=== PATIENT | female | born 1985 | race Caucasian/White ===

== ENCOUNTER 2021-12-17 13:30 | Inpatient (IN) ==
[2021-12-17] MEDS ORDERED: MEPERIDINE 50 MG/1 ML VIAL IV PRN (13:46)
[2021-12-17] MEDS ORDERED: ONDANSETRON 4 MG/2 ML VIAL IV PRN ×2 (13:46→20:10)
[2021-12-17] MEDS ORDERED: BUTORPHANOL 2 MG/ML VIAL IV PRN (13:46)
[2021-12-17] MEDS ORDERED: AMPICILLIN INJ 2,000 MG in SODIUM CHLORIDE 0.9% 100 ML IV ONE (13:48)
[2021-12-17] MEDS ORDERED: OXYTOCIN/LR 20 UNIT/1,000 ML BAG IV SCH (14:00)
[2021-12-17] MEDS ORDERED: LACTATED RINGERS 1,000 ML IV SCH (14:00)
[2021-12-17 14:07] LABS: Basophils % 0.3 % (0.0-0.8); Eosinophils # 0.1 10*3/uL (0.0-0.87); Eosinophils % 0.6 % (0.00-10.9); Hematocrit 34.8 VOL% (35.7-47.0); Hemoglobin 11.5 GM/DL (12.0-16.0); Immature Granulocytes % 0.6 %; Immature Granulocytes Absolute 0.06 #; Lymphocytes # 2.1 10*3/uL (1.4-4.0); Lymphocytes % 20.6 % (21.3-54.2); Mean Corpuscular Volume 89.5 FL (87-102); Mean Platelet Volume 10.2 FL (9.6-12.0); Monocytes % 5.1 % (1.7-12.7); Neutrophils % 72.8 % (38.7-73.9); Platelet Count 271 T/CUMM (130-400); Red Blood Count 3.89 MC/CUMM (3.8-5.5); Red Cell Distribution Width 12.5 % (9.3-17.3); White Blood Count 10.3 T/CUMM (4-12)
[2021-12-17] MEDS ORDERED: CITRIC ACID/SODIUM CITRATE 30 ML UDCUP PO ONE (17:56)
[2021-12-17] MEDS ORDERED: diphenhydrAMINE 50 MG/1 ML VIAL IV PRN ×2 (17:56)
[2021-12-17] MEDS ORDERED: ePHEDrine 50 MG/ML VIAL IV PRN (17:56)
[2021-12-17] MEDS ORDERED: NALOXONE 0.4 MG/ML VIAL IV PRN (17:56)
[2021-12-17] MEDS ORDERED: FAMOTIDINE 20 MG/2 ML VIAL IV ONE (17:56)
[2021-12-17] MEDS ORDERED: LACTATED RINGERS 1,000 ML IV ONE (17:56)
[2021-12-17] MEDS ORDERED: fentaNYL 2 MCG/ROPIV 0.2% EPID 100 ML EPIDURAL SCH (18:00)
[2021-12-17] MEDS ORDERED: AMPICILLIN INJ 1,000 MG in SODIUM CHLORIDE 0.9% 100 ML IV SCH (18:30)
[2021-12-17] MEDS ORDERED: SODIUM CHLORIDE 0.9% 0 ML IV ONE (19:12)
[2021-12-17] MEDS ORDERED: miSOPROStoL 200 MCG TABLET ONE (19:12)
[2021-12-17] MEDS ORDERED: TRANEXAMIC ACID 1,000 MG/10 ML VIAL ONE (19:12)
[2021-12-17] MEDS ORDERED: OXYTOCIN/LR 20 UNIT/1,000 ML BAG IV ONE ×2 (19:12→20:10)
[2021-12-17] MEDS ORDERED: METHYLERGONOVINE 0.2 MG/1 ML AMP ONE (19:13)
[2021-12-17] MEDS ORDERED: CARBOPROST TROMETHAMINE 250 MCG/ML AMP IM ONE (19:13)
[2021-12-17] MEDS ORDERED: BENZOCAINE 20%/MENTHOL 0.5% SPRAY 56 GM CAN TOP PRN (20:10)
[2021-12-17] MEDS ORDERED: BISACODYL 10 MG SUPP RECTAL PRN (20:10)
[2021-12-17] MEDS ORDERED: MEASLES/MUMPS/RUBELLA VACCINE 0.5 ML VIAL SUBCUT ONE (20:10)
[2021-12-17] MEDS ORDERED: HYDROCORTISONE 2.5% RECTAL CREAM 30 GM TUBE TOP PRN (20:10)
[2021-12-17] MEDS ORDERED: DIPH/TET/ACEL PERT BOOSTER VACCINE 0.5 ML VIAL IM ONE (20:10)
[2021-12-17] MEDS ORDERED: RHO(D) IMMUNE GLOBULIN 300 MCG SYRINGE IM ONE (20:10)
[2021-12-17] MEDS ORDERED: LANOLIN 50% CREAM 0.3 OZ TUBE TOP PRN (20:10)
[2021-12-17] MEDS ORDERED: WITCH HAZEL PADS 100/JAR TOP PRN (20:10)
[2021-12-17] MEDS ORDERED: oxyCODONE/ACETAMINOPHEN 5-325 MG TABLET PO PRN (20:11)
[2021-12-17 20:37] LABS: Cord Venous Blood HCO3 22.2 MMOL/L; Cord Venous Blood PCO2 42.9 MMHG; Cord Venous Blood PO2 26.6
[2021-12-17] MEDS: DOCUSATE SODIUM 100 MG CAPSULE PO SCH (23:59)
[2021-12-18] MEDS: ACETAMINOPHEN 325 MG TABLET PO PRN ×3 (01:07→20:37)
[2021-12-18] MEDS ORDERED: KETOROLAC 30 MG/1 ML VIAL IV ONE (02:48)
[2021-12-18] MEDS ORDERED: PANTOPRAZOLE 40 MG VIAL IV SCH (02:48)
[2021-12-18 05:33] LABS: Basophils % 0.4 % (0.0-0.8); Eosinophils # 0.1 10*3/uL (0.0-0.87); Eosinophils % 1.3 % (0.00-10.9); Hematocrit 32.3 VOL% (35.7-47.0); Hemoglobin 10.7 GM/DL (12.0-16.0); Immature Granulocytes % 0.4 %; Immature Granulocytes Absolute 0.04 #; Lymphocytes # 2.5 10*3/uL (1.4-4.0); Lymphocytes % 23.6 % (21.3-54.2); Mean Corpuscular HGB Conc 33.1 GM/DL (32-36); Mean Platelet Volume 10.3 FL (9.6-12.0); Monocytes % 7.5 % (1.7-12.7); Neutrophils % 66.8 % (38.7-73.9); Platelet Count 219 T/CUMM (130-400); Red Blood Count 3.63 MC/CUMM (3.8-5.5); Red Cell Distribution Width 12.4 % (9.3-17.3); White Blood Count 10.7 T/CUMM (4-12)
[2021-12-18 06:21] LABS: HIV Antigen/Antibody Result Nonreactive (Nonreactive); Hepatitis B Surface Ag Quant < 0.10 Index; Hepatitis B Surface Ag Result Non-Reactive (NonReactive); Rubella Antibody IgG Result Reactive (NonReactive)
[2021-12-18] MEDS: IBUPROFEN 800 MG TABLET PO PRN ×2 (06:39→15:09)
[2021-12-18] MEDS: DOCUSATE SODIUM 100 MG CAPSULE PO SCH ×2 (08:53→20:37)
[2021-12-19] MEDS: ACETAMINOPHEN 325 MG TABLET PO PRN (03:26)
[2021-12-19] MEDS: IBUPROFEN 800 MG TABLET PO PRN (07:21)
[2021-12-19] MEDS: DOCUSATE SODIUM 100 MG CAPSULE PO SCH (08:33)
[2021-12-19 09:20] VITALS: BP 132/85
== END 2021-12-19 11:50 | disposition home or self-care (01) | DRG 807 ==
LOC: N.LD 13:30 → N.OB 22:55
PROVIDERS: ADMIT Obstetrics & Gynecology; ATTEND Obstetrics & Gynecology